=== PATIENT | female | born 1945 | race Caucasian/White ===

== ENCOUNTER 2016-08-15 09:47 | Outpatient (RCR) | payer MEDICARE, BC ==
[2012-08-09 11:25] VITALS: BP 166/75
[~2016-08-15 09:47] MED LIST: FLONASE0.05 MG/AC NS; LOVASTATIN20 MG PO; SERTRALINE HCL100 MG PO; ZESTRIL40 MG PO; [UNRECOGNIZED DRUG - OTHER] TP
== END 2016-11-13 | disposition home or self-care (01) ==
LOC: PT
DX: M25.561 Pain in right knee (principal)

== ENCOUNTER → 2016-09-12 | Outpatient (CLI) | payer MEDICARE, BC | LOC: RAD 15:01 | DX: M25.561 Pain in right knee (principal); M17.11 Unilateral primary osteoarthritis, right knee; S83.281A Other tear of lateral meniscus, current injury, right knee, initial encounter; X58.XXXA Exposure to other specified factors, initial encounter ==

== ENCOUNTER → 2016-09-21 | Outpatient (CLI) | payer MEDICARE, BC | LOC: RAD 10:29 | DX: S89.91XA Unspecified injury of right lower leg, initial encounter (principal); X50.1XXA Overexertion from prolonged static or awkward postures, initial encounter ==

== ENCOUNTER → 2017-04-19 | Outpatient (CLI) | payer MEDICARE, BC ==
[2012-08-09 11:25] VITALS: BP 166/75
== END ==
LOC: MAMMO 12:56
DX: Z12.31 Encounter for screening mammogram for malignant neoplasm of breast (principal)
CPT/HCPCS: G0202